=== PATIENT | male | born 1980 | race Caucasian/White ===

== ENCOUNTER 2017-05-17 12:20 | Emergency (ER) | payer OTHER, SELFPAY ==
[~2017-05-17] VITALS: Ht 167.6 cm; Wt 81.8 kg
[2017-05-17] MEDS ORDERED: KETOROLAC 60 MG/2 ML VIAL (J1885) IM ONE (14:00)
[2017-05-17] MEDS ORDERED: IBUP-1022 PO (14:46)
[2017-05-17] MEDS ORDERED: ROBA500T PO (14:46)
--- NOTE | 2017-05-17 15:09 | REP ---
Chest x-ray: Two views. History: Left-sided chest pain . Comparison study: No comparison study . Findings: The lungs are well inflated and free of infiltrate. The pleural angles are sharp. The heart size is normal. Pulmonary vasculature is not increased. No significant bony abnormality is seen. Impression: Negative chest x-ray. Signed by Sanya Campo MD 05/17/2017 03:01 P
[2017-05-17 15:12] VITALS: BP 138/84
--- NOTE | 2017-05-17 20:00 | ECGEPIP ---
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
== END 2017-05-17 15:13 | disposition home or self-care (01) ==
LOC: M ED 12:20
DX: R07.89 Other chest pain (principal); M10.9 Gout, unspecified
CPT/HCPCS: 71020; 85379; 93005; 96372; 99283; J1885; J3360

== ENCOUNTER 2017-10-09 10:57 | Emergency (ER) | payer SELFPAY ==
[2017-10-09 12:09] LABS: INFLUENZA A AMPLIFICATION NEGATIVE (NEGATIVE); INFLUENZA B AMPLIFICATION NEGATIVE (NEGATIVE)
== END 2017-10-09 13:06 | disposition home or self-care (01) ==
LOC: M ED 10:57
DX: Z20.9 Contact with and (suspected) exposure to unspecified communicable disease (principal); Z87.891 Personal history of nicotine dependence; F17.228 Nicotine dependence, chewing tobacco, with other nicotine-induced disorders; M10.9 Gout, unspecified
CPT/HCPCS: 87502